=== PATIENT | male | born 1940 | race Caucasian/White ===

== ENCOUNTER 2021-06-03 19:06 | Observation (INO) | payer OTHER, MEDICARE ==
[~2021-06-03] VITALS: Ht 180.3 cm; Wt 109.2 kg
[2021-06-03] MEDS ORDERED: fentaNYL PF VIAL 100 MCG/2 ML VIAL IVP ONE (21:15)
--- NOTE | 2021-06-03 21:20 | PHYS DOC ---
Past Medical History Past Medical History: High Cholesterol, Hypertension Past Surgical History: No Surgical History Smoking Status: Never Smoker Alcohol Use: None Drug Use: None General Adult EDM: Chief Complaint: CHEST PAIN Problems: (1) Chest pain HPI: HPI: 80-year-old male presents the emergency department complaining of chest pain started around 5 PM today. He reports that he was driving to the [employer] and his chest pain started, rated the middle of the chest, radiates out to the sides. Denies any shortness of breath the chest pain. Denies any palliative or provoking factors. He has a history of high cholesterol, family history of heart disease, obesity. He reports he was recently treated for cellulitis of the lower extremities, was also treated for a abscess over his neck that he states was drained today Review of Systems: Review of Systems: Constitutional: Denies fever or chills. Eyes: Denies change in vision, pain. HENT: Denies congestion or sore throat. Respiratory: Denies cough or shortness of breath. Cardiovascular: Admits to chest pain, denies edema. GI: Denies abdominal pain, nausea. : Denies change in urination, dysuria. Musculoskeletal: Denies extremity pain, or trauma. Skin: Admits to chronic skin change person the lower extremities bilaterally, denies rash. Neurologic: Denies headache, focal weakness. Psychiatric: Denies depression or anxiety. All other systems reviewed as negative except for what was mentioned in the HPI. Heart Score: C/O Chest Pain: Yes HEART Score for Chest Pain: HEART Score for Chest Pain Response (Comments) Value History Moderately Suspicious 1 Age > 65 2 Risk Factors >3 Risk Factors or Hx CAD 2 Troponin < Normal Limit 0 Total 5 Family History: Family History: Family history of heart disease Physical Exam: PE: Constitutional: No acute distress, non-toxic appearance. HENT: Atraumatic, bilateral external ears normal, nose normal. Eyes: PERRLA, EOMI, conjunctiva normal, no discharge. Neck: Normal range of motion, supple, no stridor. Cardiovascular: Heart rate regular rhythm. 2+ radial pulses Lungs & Thorax: No respiratory distress, symmetrical expansion. Bilateral breath sounds clear to auscultation Abdomen: Soft, no tenderness Skin: Warm, dry. Extremities: No tenderness, no cyanosis, ROM intact, no edema. Neurologic: Alert and oriented X 3, normal motor function, normal sensory function, no focal deficits noted. Non ataxic gait. GCS 15. Psychologic: Affect normal, judgment normal, mood normal. Current Patient Data: Vital Signs: Vital Signs Date Time Temp Pulse Resp B/P (MAP) Pulse Ox O2 Delivery O2 Flow Rate FiO2 06/03/21 21:40 97.6 59 18 159/73 99 Room Air 97.6 EKG: EKG: performed at 1910: Normal sinus rhythm rate of 56, no ST-T wave changes, no ectopic beats, left axis deviation, first-degree AV block. Impression: There is no AV block, no STEMI, no acute ischemic changes. interpreted by me, Isai Hurt D.O. Repeat EKG performed at 2131 without acute change Radiology/Procedures: Radiology/Procedures: PROCEDURE: PORTABLE CHEST 1V Exam: Chest one view INDICATION: Chest pain TECHNIQUE: Frontal view of the chest Comparisons: None FINDINGS: The cardiomediastinal silhouette and pulmonary vessels are within normal limits. Subtle patchy bilateral airspace disease. No pleural effusion IMPRESSION: Patchy bilateral airspace disease favored to be infectious or inflammatory in etiology. Electronically signed by: Terry Carey MD (06/03/2021 9:50 PM) Course & Med Decision Making: Course & Med Decision Making Patient with a heart score of 5, we will admit for observation and cardiology consult in the morning. Rocephin and azithromycin ordered to cover for pneumonia based on chest x-ray findings. Departure Departure Impression: Primary Impression: Chest pain Additional Impression: Pneumonia Disposition: ADMITTED INPATIENT (Dr. Mercer) Condition: STABLE Referrals: UNKNOWN PCP NAME (PCP) ISAI HURT DO Jun 03, 2021 21:20
[2021-06-03 21:49] LABS: BASO % 1 % (0-3); EOS # 0.5 x10^3/uL (0.0-0.7); EOS % 5 % (0-3); HEMATOCRIT 39.6 % (39.0-53.0); HEMOGLOBIN 13.1 g/dL (13.0-17.5); LYMPH # 1.5 x10^3/uL (1.0-4.8); LYMPH % 15 % (24-48); MEAN CORPUSCULAR HEMOGLOBIN 29 pg (25-35); MEAN CORPUSCULAR HGB CONC 33 g/dL (31-37); MEAN CORPUSCULAR VOLUME 87 fL (79-100); MONO # 0.7 x10^3/uL (0.0-1.1); MONO % 6 % (0-9); NEUT # 7.6 x10^3/uL (1.8-7.7); NEUT % 73 % (31-73); PLATELET COUNT 208 x10^3/uL (140-400); RED BLOOD COUNT 4.57 x10^6/uL (4.30-5.70); RED CELL DISTRIBUTION WIDTH 14.3 % (11.5-14.5); WHITE BLOOD COUNT 10.4 x10^3/uL (4.0-11.0)
--- NOTE | 2021-06-03 21:52 | RAD ---
Exam: Chest one view INDICATION: Chest pain TECHNIQUE: Frontal view of the chest Comparisons: None FINDINGS: The cardiomediastinal silhouette and pulmonary vessels are within normal limits. Subtle patchy bilateral airspace disease. No pleural effusion IMPRESSION: Patchy bilateral airspace disease favored to be infectious or inflammatory in etiology. Electronically signed by: Terry Carey MD (06/03/2021 9:50 PM) IVORY
[2021-06-03 22:05] LABS: CALCIUM 8.8 mg/dL (8.5-10.1); CREATININE 1.4 mg/dL (0.7-1.3); POTASSIUM 4.7 mmol/L (3.5-5.1)
[2021-06-03] MEDS ORDERED: ONDANSETRON PF 4 MG/2 ML VIAL. IVP PRN (22:30)
[2021-06-03] MEDS ORDERED: MORPHINE SULFATE 4 MG/ML INJ. IVP PRN (22:30)
[2021-06-03] MEDS ORDERED: AZITHRMYCN 500MG IVPB FOR OMNI 250 ML IV ONE (22:45)
[2021-06-03] MEDS ORDERED: cefTRIAXone IV Push 2 GM VIAL. IVP ONE (22:45)
[2021-06-04] VITALS (7 sets, daily range): BP systolic 128–191; BP diastolic 65–86
--- NOTE | 2021-06-04 02:06 | NUR ---
The patient, DAVID SMITH, 80 y/o, M admitted by ARBEN LAINEZ MD, was given written information regarding hospital policies, unit procedures and contact persons. Assessment completed vs obtained and stable pt stated he takes home medications but is unable to state what he takes and stated we can contact his primary physician to get his list. Pt denied pain at time of assessment call light in reach pt oriented to surroundings. Pt has wound on his neck pt stated he was seen at his Dr. office yesterday to have area drained will consult wound care to follow care.Will resume care and continue to monitor pt.
[2021-06-04 03:16] LABS: CHOLESTEROL/HDL RATIO 2.7
--- NOTE | 2021-06-04 05:40 | EKG ---
[facility] [address] [place] [address] Test Date: 2021-06-03 Test Time: 21:32:51 Pat Name: DAVID SMITH Department: Room: Gender: M Claim Taker: : 1940 Requested By: CHRISTINE SWAN Order Number: [id number] Reading MD: Measurements Intervals [place] Rate: 59 P: LA: QRS: -3 QRSD: 92 T: 28 QT: 402 QTc: 402 Interpretive Statements ATRIAL FIBRILLATION LEFTWARD AXIS ABNORMAL ECG RI6.02 Compared to ECG 06/03/2021 19:10:12 Sinus rhythm no longer present First degree AV block no longer present Myocardial infarct finding no longer present
[2021-06-04] MEDS: ENOXAPARIN 40 MG/0.4 ML SYRINGE. SQ SCH (08:26)
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
--- NOTE | 2021-06-04 12:02 | NUR ---
SS following for discharge planning. SS reviewed pt chart and discussed with pt RN. Pt is from home and is currently on room air. COVID19 negative. Wound care and Cardiology following. ECHO ordered. SS will continue to follow for discharge planning.
[2021-06-04] MEDS ORDERED: POTA20TA4 PO (12:05)
[2021-06-04] MEDS ORDERED: AMLO-186 PO (12:05)
[2021-06-04] MEDS ORDERED: CLOB15OI TP (12:05)
[2021-06-04] MEDS ORDERED: FURO-69 PO (12:05)
[2021-06-04] MEDS ORDERED: CARV25TA2 PO (12:05)
[2021-06-04] MEDS ORDERED: BACI3.5O8 OD (12:05)
[2021-06-04] MEDS ORDERED: ALLO300T PO (12:05)
[2021-06-04] MEDS ORDERED: EZET10TA20 PO (12:05)
[2021-06-04] MEDS ORDERED: PRAV20TA2 PO (12:05)
[2021-06-04] MEDS ORDERED: AMOX1TAB61 PO (12:19)
[2021-06-04] MEDS: ASPIRIN ENTERIC COATED 81 MG TABLET.DR. PO SCH (13:01)
--- NOTE | 2021-06-04 13:21 | SSS ---
ADMIT DATE: 06/04/2021 SHORT STAY SUMMARY CHIEF COMPLAINT: Chest pain. HISTORY OF PRESENT ILLNESS: The patient is a pleasant 80-year-old male who presented to the ER last night with chest pain. We admitted him overnight for observation. So far his enzymes are negative. We did consult Cardiology. His workup was negative. I saw and examined this morning. He does want to go home. We plan to discharge. I am going to give him a prescription for Augmentin as he does have some cellulitis as well on his lower extremities. PAST MEDICAL HISTORY: Hypertension, hyperlipidemia, CHF,edema, gout and probable peripheral vascular disease. ALLERGIES: None. FAMILY HISTORY: Diabetes. SOCIAL HISTORY: He does not drink, smoke or take drugs. He is retired. MEDICATIONS: Reviewed, please refer to the MRAD. REVIEW OF SYSTEMS: GENERAL: No history of weight change, weakness or fevers. SKIN: No bruising, hair changes or rashes. EYES: No blurred, double or loss of vision. NOSE AND THROAT: No history of nosebleeds, hoarseness or sore throat. HEART: No history of palpitations, chest pain or shortness of breath on exertion. LUNGS: Denies cough, hemoptysis, wheezing or shortness of breath. GASTROINTESTINAL: Denies changes in appetite, nausea, vomiting, diarrhea or constipation. GENITOURINARY: No history of frequency, urgency, hesitancy or nocturia. NEUROLOGIC: Denies history of numbness, tingling, tremor or weakness. PSYCHIATRIC: No history of panic, anxiety or depression. ENDOCRINE: No history of heat or cold intolerance, polyuria or polydipsia. EXTREMITIES: Denies muscle weakness, joint pain, pain on walking or stiffness. . PHYSICAL EXAMINATION: VITALS: Within normal limits and are stable. GENERAL: No apparent distress. Alert and oriented. HEENT: Normal cephalic atraumatic, external auditory canals are patent. EYES: Extraocular muscles are intact, pupils are equally round and reactive to light and accommodation. MUSCULOSKELETAL: Well developed, well nourished, good range of motion. ENDOCRINE: No thyromegaly was palpated. LYMPHATICS: No cervical chain or axillary nodes were noted. HEMATOPOIETIC: No bruising. NECK: Supple, no JVD, no thyromegaly was noted. LUNGS: Clear to auscultation in all lung rosas without rhonchi or wheezing. HEART: RRR, S1, S2 present. Peripheral pulses intact, no obvious murmurs were noted. ABDOMEN: Soft, nontender. Positive bowel sounds no organomegaly, normal bowel sounds. EXTREMITIES: He has bilateral lower extremity cellulitis. NEUROLOGIC: Normal speech, normal tone. A and O x 3, moves all extremities, no obvious focal deficits. PSYCHIATRIC: Normal affect, normal mood. Stable. SKIN: No ulcerations or rashes, good skin turgor, no jaundice. VASCULAR: Good capillary refill, neurovascular bundle appears to be intact. LABORATORY DATA: White count is 10, hemoglobin 13, platelets 208. Troponin is 0. ASSESSMENT AND PLAN: Atypical chest pain. The patient was admitted overnight for observation. Today, he is doing well. I believe Cardiology is okay with him going home. We will go ahead and discharge if okay with him. DISPOSITION: Home. ACTIVITY: As tolerated. DIET: Low sodium. MEDICATIONS: Please see the MRAD. I did give him a prescription for Augmentin 875 p.o. b.i.d. for 1 week. We will continue his home medicines of allopurinol 300 a day, amlodipine 5 a day, carvedilol 12.5 b.i.d., Zetia 10 a day, Lasix 20 a day, potassium 20 a day, and pravastatin [address]: LETI/lulú TID: [id number]
--- NOTE | 2021-06-04 15:14 | CARD ---
MR#: [id number] Date of Study: 06/04/2021 Ordering Physician: KELLY BARRIENTOS, Referring Physician: KELLY BARRIENTOS, Carlos: John Leiva [facility] APPROVED REPORT EXAM: Two-dimensional and M-mode echocardiogram with Doppler and color Doppler. Other Information Quality : Fair Rhythm : NSR INDICATION Chest Pain RISK FACTORS Hypertension Obesity Hyperlipidemia 2D DIMENSIONS Left Atrium(2D)4.9 (1.6-4.0cm)IVSd1.4 (0.7-1.1cm) Aortic Root(2D)3.2 (2.0-3.7cm)LVDd5.1 (3.9-5.9cm) LVOT Diameter2.1 (1.8-2.4cm)PWd1.4 (0.7-1.1cm) LVDs3.6 (2.5-4.0cm)FS (%) 29.2 % SV68.4 mlLVEF(%)55.7 (>50%) Aortic Valve AoV Peak Dilan.211.2cm/sAoV VTI43.0cm AO Peak GR.17.8mmHgLVOT Peak Dilan.117.8cm/s AO Mean GR.9mmHgAVA (VMAX)1.92cm2 Mitral Valve MV E Sosgsjer958.8cm/sMV E Peak Gr.8mmHg MV DECEL [id number] A Upoorjel248.3cm/s MV E Mean Gr.2mmHgE/A Ratio0.8 Pulmonary Valve PV Peak Xlmpmudu129.7cm/s Tricuspid Valve TR P. Jhsrfzkl961tw/sTR Peak Gr.32mmHg Pulmonary Vein S1 Cioaebkw27.4cm/sD2 Qlpngbiu53.1cm/s LEFT VENTRICLE The left ventricle is normal size. There is moderate concentric left ventricular hypertrophy. The lef t ventricular systolic function is normal. The ejection fraction is 60%. There is normal LV segmental wall motion. Transmitral Doppler flow pattern is Grade I-abnormal relaxation pattern. No left ventri grayson thrombus noted on this study. There is no ventricular septal defect visualized. There is no left ventricular aneurysm. There is no mass noted in the left ventricle. RIGHT VENTRICLE The right ventricle is normal size. There is normal right ventricular wall thickness. The right ventr icular systolic function is normal. ATRIA The left atrium is moderately dilated. The right atrium size is normal. The interatrial septum is int act with no evidence for an atrial septal defect or patent foramen ovale as noted on 2-D or Doppler i maging. AORTIC VALVE The aortic valve is mildly sclerotic. Doppler and Color Flow revealed no significant aortic regurgita tion. There is no significant aortic valvular stenosis. There is no aortic valvular vegetation. MITRAL VALVE The mitral valve is normal in structure and function. There is no evidence of mitral valve prolapse. There is no mitral valve stenosis. Doppler and Color-flow revealed mild mitral regurgitation. TRICUSPID VALVE The tricuspid valve is normal in structure and function. Doppler and Color Flow revealed mild tricusp id regurgitation. There is no tricuspid valve prolapse or vegetation. There is no tricuspid valve isaura nosis. PULMONIC VALVE The pulmonary valve is normal in structure and function. Doppler and Color Flow revealed no pulmonic valvular regurgitation. There is no pulmonic valvular stenosis. GREAT VESSELS The aortic root is normal in size. The ascending aorta is normal in size. The pulmonary artery is nor mal. The IVC is normal in size and collapses >50% with inspiration. PERICARDIAL EFFUSION There is no pleural effusion. There is no evidence of significant pericardial effusion. Critical Notification Critical Value: No <Conclusion> The left ventricular systolic function is normal. The ejection fraction is 60%. There is normal LV segmental wall motion. Transmitral Doppler flow pattern is Grade I-abnormal relaxation pattern. Mild mitral regurgitation. Mild tricuspid regurgitation. There is no evidence of significant pericardial effusion. Signed by : Inderjit Deras, Electronically Approved : 06/04/2021 15:13:54
--- NOTE | 2021-06-04 15:45 | NUR ---
Wound/Ostomy Care Wound Type/Assessment: Wound care consult for posterior neck abscess and bilateral leg cellulitis. BLE noted to be red and dry, no open areas noted, recommendations to keep legs moisturized to avoid skin from splitting. Posterior neck assessed, cleansed and measured, area noted to be indurated, red and hot, large purulent drainage noted when cleaning wound, pt states that a doctor performed an I&D on it a few days ago. Treatment Recommendations/Plan: Cleanse wound with saline or wound wash, pack with 1/4" iodoform and cover with foam or telfa, change daily. BLE apply moisturizer daily and prn Education provided: pt educated on PU prevention and leg elevation to decrease swelling Offloading surface/device: pillow to elevate legs Recommended Referrals/Tests: Dr. Mccall (wound care provider) to have wound eval for possible I&D Discharge Recommendations for dressings: same as above.
[2021-06-05 02:45] VITALS: BP 171/81
[2021-06-05 07:00] VITALS: BP 156/90
[2021-06-05] MEDS: ASPIRIN ENTERIC COATED 81 MG TABLET.DR. PO SCH (08:20)
[2021-06-05] MEDS: ENOXAPARIN 40 MG/0.4 ML SYRINGE. SQ SCH (08:20)
--- NOTE | 2021-06-05 08:57 | PDOC ---
[employer] PROGRESS NOTE Date of Service DOS: DATE: 06/05/21 TIME: 08:50 Chief Complaint Chief Complaint Chest pain HTN Hyperlipidemia History of Present Illness History of Present Illness The patient is a pleasant 80-year-old male who presented to the ER last night with chest pain. We admitted him overnight for observation. So far his enzymes are negative. We did consult Cardiology. His workup was negative. I saw and examined this morning. He does want to go home. We plan to discharge. I am going to give him a prescription for Augmentin as he does have some cellulitis as well on his lower extremities. 06/05/2021 Patient was seen and examined at edge of bed Patient was sitting upright, NAD and pleasant D/W RN Chart Review Discussed discharge plan after wound care consult on neck abscess Vitals/I&O Vitals/I&O: Vital Signs Date Time Temp Pulse Resp B/P (MAP) Pulse Ox O2 Delivery O2 Flow Rate FiO2 06/05/21 02:45 98.1 57 20 171/81 (111) 95 Room Air 98.1 I & O 06/04/21 06/04/21 06/05/21 15:00 23:00 07:00 Intake Total 240 ml 900 ml 200 ml Balance 240 ml 900 ml 200 ml Physical Exam General: Alert, Oriented X3, Cooperative, No acute distress Heart: Regular rate Lungs: Clear Abdomen: Soft, No tenderness Extremities: No edema Skin: No significant lesion Review of Systems Review of Systems: Denies FRIEDMAN or dizziness Denies fevers or chill Bowel and bladder continent Assessment and Plan Assessmemt and Plan Chest pain, resolved HTN Hyperlipidemia Plan Continue Antibiotics Cardiac Monitoring Home Meds DVT prophylaxis Wound care consult for neck abscess Discharge pending wound care evaluation Full Code Outpatient follow up with cardiology Comment Review of Relevant I have reviewed the following items norma (where applicable) has been applied. Medications: Current Medications Medications (Trade) Dose Ordered Sig/Alexandro Route PRN Reason Start Time Stop Time Status Last Admin Dose Admin Enoxaparin Sodium (Lovenox 40mg Syringe) 40 mg DAILY SQ 06/04/21 09:00 06/05/21 08:20 Aspirin (Ecotrin) 81 mg DAILYWBKFT PO 06/04/21 12:00 06/05/21 08:20 Justifications for Admission Other Justification CHANDU CALL III DO Jun 05, 2021 08:57
[2021-06-05 11:00] VITALS: BP 168/94
--- NOTE | 2021-06-05 11:29 | PDOC ---
KELLY BARRIENTOS APRN 06/05/21 1129: CARDIO Progress Notes Date and Time Date of Service 06/05/21 Time of Evaluation 1120 Subjective Subjective: No Chest Pain, No shortness of breath, No Palpitations, Other (wanting to go home ) Vitals Vitals Vital Signs Date Time Temp Pulse Resp B/P (MAP) Pulse Ox O2 Delivery O2 Flow Rate FiO2 06/05/21 08:00 Room Air 06/05/21 07:00 97.7 61 17 156/90 (112) 94 97.7 Weight Weight [ ] Input and Output Intake and Output Intake and Output 06/05/21 07:00 Intake Total 1340 ml Balance 1340 ml Intake Oral 1340 ml # Voids 2 Physical Exam HEENT: Neck Supple W Full Motion Chest: Symmetric LUNGS: Clear to Auscultation Heart: RRR Abdomen: Soft N/T Extremities: Other (bilateral LE erythem, trace bilateral LE edema ) Neurology: alert, oriented, follow commands Assessment Assessment 1. Chest pain, atypical. troponin series normal, AMI ruled out. Echo with preserved LV systolic function 2. Accelerated hypertension; remains mildly elevated 3. Hyperlipidemia 4. Bilateral LE cellulitis; as per IM Recommendations ASA, statin therapy Recent OSH cardiac workup not obtained Outpatient ischemic evaluation Follow up with [facility] cardiology Supportive care Justicifation of Admission Dx: Justifications for Admission: Justification of Admission Dx: Yes Comments: Chest pain Hypertension CASSY RAINEY MD 06/05/21 1515: CARDIO Progress Notes Assessment Assessment Patient seen and evaluated. I agree with our nurse practitioners assessment and plan. Chest pain, atypical. troponin series normal, AMI ruled out. Echo with preserved LV systolic function. Would consider outpatient ischemia evaluation. Patient follows at [facility]. Accelerated hypertension; remains mildly elevated. Continue medications and monitor. Hyperlipidemia. Continue statin. Bilateral LE cellulitis; as per IM KELLY BARRIENTOS APRN Jun 05, 2021 11:29 CASSY RAINEY MD Jun 05, 2021 15:15
[2021-06-05] MEDS ORDERED: ATORVASTATIN CALCIUM 10 MG TABLET. PO SCH (12:00)
[2021-06-05] MEDS ORDERED: ALLOPURINOL 300 MG TABLET. PO SCH (12:00)
[2021-06-05] MEDS ORDERED: FUROSEMIDE 20 MG TABLET PO SCH (12:00)
[2021-06-05] MEDS ORDERED: EZETIMIBE 10 MG TABLET. PO SCH (12:00)
[2021-06-05] MEDS ORDERED: POTASSIUM CHLORIDE 20 MEQ TABLET.ER. PO SCH (12:00)
[2021-06-05] MEDS: CARVEDILOL 12.5 MG TABLET. PO SCH ×2 (12:26→17:23)
--- NOTE | 2021-06-05 13:11 | NUR ---
SS following up with discharge planning. SS reviewed pt chart and discussed with pt RN. Pt is currently on room air. COVID[address] negative[address] Mccall consulted for abscess. Discharge order on the chart for home with self care. Currently awaiting Dr. Mccall assessment prior to discharge. SS will continue to follow for discharge planning.
--- NOTE | 2021-06-05 14:11 | NUR ---
Wound/Ostomy Care Wound Type/Assessment: patient seen per wound care follow up again today for Dr. Mccall to see patient and assess posterior neck wound for possible bedside I&D. Patient agreeable to bedside I&D with written and verbal consent. Injectable lidocaine used by Dr. Mccall. Wound cleansed, assessed, measured, and pictured post I&D. Patient tolerated well with minimal pain. A creamy drainage was expressed from this wound, patient stated he felt instant relief. Wound redressed with 1/4 inch Iodoform packing (left in room) for next dressing changes, covered with gauze and tape. Treatment Recommendations/Plan: Orders from Dr. Mccall to pack with 1/4 inch Iodoform gauze packing to wound, then cover with gauze pads and tape. Change daily. Education provided: patient educated on dressing changes, PU prevention, and wound care following discharge. Offloading surface/device: Patient is independent. Recommended Referrals/Tests: Patient to follow up with us in [facility], patient provided with the clinic's information and phone number, and once patient is discharged our audio visual secretary will call patient to schedule an appointment, as patient appears to be forgetful and/or LYTTON. Discharge Recommendations for dressings: Dressing change instructions left in room. No other wounds noted. Patient very pleasant and left in chair with call light in reach. Wound care will follow up with patient. Spoke with MARCY Bhatt regarding POC.
--- NOTE | 2021-06-05 14:19 | PDOC ---
Progress Note-Wound Care SUBJECTIVE Painful boil on the back of his neck for 2 days: he had had a non painful swelling for the previous week. No hx of boils or similar skin issues. OBJECTIVE Vital Signs Vital Signs Date Time Temp Pulse Resp B/P (MAP) Pulse Ox O2 Delivery O2 Flow Rate FiO2 06/04/21 07:00 98.1 62 20 167/75 (105) 97 Room Air 98.1 Vital Signs Date Time Temp Pulse Resp B/P (MAP) Pulse Ox O2 Delivery O2 Flow Rate FiO2 06/05/21 12:26 67 188/77 06/05/21 11:00 97.9 19 98 Room Air 97.9 Physical Exam: 3-4 mm swollen indurated tumor on nuchal surface with soft, central core but m inimal creamy serous discharge. No periwound erythema or excess warmth. ASSESSMENT After obtaining written consent, and using 1.5 cc of 1% lidocaine with epi for local anesthesia, I incised a 1.5 cm opening on Mr Cifuentes's midline nuchal surface and expressed only a moderate amount of creamy white exudate, some of it waxy and c/w sebaceous material. Pt tolerated the procedure well. There is still some remaining induration. Pack with iodoform gauze. Rx Augmentin 875 po q 12 h x 10 d. F/U in wound care clinic as outpatient in 2 days: Thursday, June 07. Problems: (1) Sebaceous cyst WOUND Wound Location: Midline, Dorsal Body Site: Neck Associated Signs/Symptoms: Pain, Drainage (scant creamy serouse) Drainage Amount: Scant Drainage Description: Serous, Creamy Odor: None/Absent Surrounding Tissue Appearance: pink Wound Description: skin Bone/Muscle/Tendon Exposed: AILCE Brandt MD Jun 05, 2021 14:19
[2021-06-05 15:00] VITALS: BP 184/85
[2021-06-05 17:23] VITALS: BP 184/85
--- NOTE | 2021-06-05 19:20 | NUR ---
Discharge Note: DAVID SMITH Discharge instructions and discharge home medications reviewed with Patient and a copy given. All questions have been answered and understanding verbalized. The following instructions and handouts were given: Neck Abscess, Augmentin tablets Discontinued lines and drains: Peripheral IV intact. Patient discharged to Home or Self Care with[facility]
[2021-06-05] MEDS ORDERED: AMOXICILLIN/K CLAV 875/125MG TABLET. PO SCH (21:00)
== END 2021-06-05 19:20 | disposition home or self-care (01) ==
LOC: ER 19:06 → 6 SOUTH 22:20
PROVIDERS: ADMIT Student in an Organized Health Care Education/Training Program; ATTEND Student in an Organized Health Care Education/Training Program
DX: R07.89 Other chest pain (principal); Z79.01 Long term (current) use of anticoagulants; I11.0 Hypertensive heart disease with heart failure; I50.9 Heart failure, unspecified; Z20.822 Contact with and (suspected) exposure to COVID-19; E78.00 Pure hypercholesterolemia, unspecified; E78.5 Hyperlipidemia, unspecified; I73.9 Peripheral vascular disease, unspecified; J18.9 Pneumonia, unspecified organism; L02.222 Furuncle of back [any part, except buttock and flank]; L03.115 Cellulitis of right lower limb; Z79.899 Other long term (current) drug therapy; L72.3 Sebaceous cyst
CPT/HCPCS: 36415; 71045; 80048; 80061; 83880; 84484; 85025; 87426; 93005; 93306; 96365; 96366; 96372; 96375; 99285; G0378; J0456; J0696; J1650; U0003; U0005; G0379